=== PATIENT | male | born 1950 | race Caucasian/White ===

== ENCOUNTER → 2018-03-07 | Outpatient (CLI) | payer BC ==
--- NOTE | 2018-03-07 16:59 | PCVCIMAG ---
APPROVED REPORT Study performed: 03/07/2018 15:15:11 Exam: Stress Echocardiogram Indication: CAD s/p PCI, Hypertension Patient Location: Echo lab Stress Nurse: Maegan Falcon RN Status: routine Ht: 5 ft 9 in HR: 67 bpm BP: 140/88 mmHg Rhythm: NSR Procedure The patient underwent an Exercise Stress Test using the Jonathan Protocol. Blood pressure, heart rate, and EKG were monitored. An Echocardiogram was performed by veterinary technician instructor in four stages in quad fashion. At peak stress, four selected images were obtained and placed side by side with resting images for comparison. Stress Test Details Stress Test: Exercise stress testing was performed using a Jonathan protocol. HR Resting HR: 67 bpmMax Heart Rate (APMHR): 151 bpm Max HR Achieved: 150 bpmTarget HR (85% APMHR): 128 bpm % of APMHR: 99 Recovery HR: 97 bpm HR response to stress: Normal HR response to stress BP Resting BP: 140/88 mmHg Max BP: 180/80 mmHg Recovery BP: 146/74 mmHg ECG Resting ECG: Sinus Rhythm Stress ECG: Sinus Rhythm ST Change: Normal Arrhythmia: None Recovery ECG: Sinus Rhythm Recovery ST Change: Normal Recovery Arrhythmia: None Clinical Reason for Termination: Maximal effort Stress Symptoms: Dyspnea Exercise duration: 10 min sec Highest Stage Achieved: Stage 4: 4.2 mph at 16% grade. Exercise capacity: 13.4 METs Overall Exercise Capacity for Age: Good Scale: Active Angina Score: None Pre-Stress Echo The resting Echocardiogram showed normal left ventricular contractility with an estimated Ejection Fraction of about >55%. Normal wall motion in all segments on baseline images. Post-Stress Echo The stress Echocardiogram showed normal left ventricular contractility with an estimated Ejection Fraction of about 65%. Normal augmentation of wall motion in all segments on post stress images. Clinical No clinical or ECG evidence for ischemia. 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 Mild aortic regurgitation with no stenosis and mild aortic sclerosis. Aortic sinus of valsalva is 3.8 cm and normal aortic root dimensions. The left ventricle is normal in size and wall thickness in both the rest and stress images. 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 Mild aortic regurgitation with no stenosis and mild aortic sclerosis. Aortic sinus of valsalva is 3.8 cm and normal aortic root dimensions. The left ventricle is normal in size and wall thickness in both the rest and stress images.
== END | disposition home or self-care (01) ==
LOC: PCVCIMAG 15:48
PROVIDERS: ATTEND Internal Medicine Cardiovascular Disease
DX: I25.10 Atherosclerotic heart disease of native coronary artery without angina pectoris (principal); I10 Essential (primary) hypertension; R07.9 Chest pain, unspecified
CPT/HCPCS: 93325; 93351